=== PATIENT | male | born 1990 | race Caucasian/White ===

== ENCOUNTER → 2020-04-15 | Outpatient (CLI) | payer OTHER ==
--- NOTE | 2020-04-15 08:33 | PFTRPT ---
Site: [facility], [address] [place] [address], [id number] ID: [id number] Name: ANGEL MIRELES Visit Date: 04/15/2020 Second ID: [id number] Referring Doctor: SEAN Petersen Marcus, M Reviewing Doctor: Farshad Torres MD Assistant Professor Sculpture: Johann KOVACS RRT Age: 29 : 1990 Sex: Male Race: Height: 62.50 Inches Weight: 209.00 Lbs BSA: 1.96 Order IDs: [id number] Requested Test(s): <RESP-PFT.PFT B/A> Diagnosis: R06.00 test meet the ATS standards for acceptability and repeatability. Pt was given four puffs of albuterol for post bronchodilator. Review Status: Not Reviewed Pre-Bronch Post-Bronch Pred Actual %Pred Actual %Chng SPIROMETRY FVC (L) 4.30 3.29 76 3.22 -2 FEV1 (L) 3.59 2.78 77 2.81 1 FEV1/FVC (%) 82 84 102 87 3 FEF 25% (L/sec) 8.14 7.06 86 7.35 4 FEF 50% (L/sec) 6.28 3.50 55 3.94 12 FEF 75% (L/sec) 2.13 1.26 59 1.32 4 FEF 25-75% (L/sec) 3.88 3.05 78 3.22 5 FEF Max (L/sec) 8.64 7.52 87 7.37 -2 FIVC (L) 3.27 3.27 FIF 50% (L/sec) 5.54 7.49 135 7.17 -4 FIF Max (L/sec) 7.66 7.53 -1 MVV (L/min) 155 121 78 Expiratory Time (sec) 7.09 6.32 -10 Back Extrap Vol (L) 0.14 0.13 -7 Time To FEFmax (sec) 0.101 0.102 LUNG VOLUMES SVC (L) 4.20 3.34 79 IC (L) 2.92 3.18 108 ERV (L) 1.28 0.17 12 TGV (L) 2.46 2.12 86 RV (Pleth) (L) 1.18 1.95 165 TLC (Pleth) (L) 5.38 5.29 98 RV/TLC (Pleth) (%) 23 37 160 DIFFUSION DLCOunc (ml/min/mmHg) 32.51 16.92 52 DLCOcor (ml/min/mmHg) 32.51 17.01 52 DL/VA (ml/min/mmHg/L) 6.04 4.22 69 VA (L) 5.38 4.03 74 BHT (sec) 10.11 IVC (L) 2.97 TLC (SB) (L) 4.18 AIRWAYS RESISTANCE Raw (cmH2O/L/s) 1.45 1.00 69 Gaw (L/s/cmH2O) 1.03 1.00 97 sRaw (cmH2O*s) 4.76 2.17 45 sGaw (1/cmH2O*s) 0.20 0.47 233 BLOOD GASES Hgb (gm/dL) 14.4
== END ==
LOC: M CARPUL 07:57
PROVIDERS: ATTEND Physician Assistant
DX: R06.00 Dyspnea, unspecified (principal)

== ENCOUNTER → 2020-05-13 | Outpatient (CLI) | payer OTHER ==
[~2020-05-13] MED LIST: METHACHOLINE KIT (J7674) INH ONE
--- NOTE | 2020-06-04 15:39 | METHCHAL ---
ORDERED BY: Galo Petersen M.D. QUALITY: Study of excellent technical quality. PROCEDURE: Under protocol, methacholine was administered. A dose of 0.25 mg or 1.375 CDUs, a 30% decline of the FEV1 was noted. PC of 0.11 is significant. Flow rates did return to baseline post-bronchodilator administration. IMPRESSION: Positive methacholine challenge study MTDD
--- NOTE | 2020-06-07 07:25 | PFTRPT ---
Visit Date: 05/13/2020 Second ID: [id number] Referring Doctor: SEAN Petersen Marcus, M Height: 62.50 Inches Weight: 209.00 Lbs BSA: 1.96 Diagnosis: R06.00 QUALITY: Study of excellent technical quality. PROCEDURE: Under protocol, methacholine was administered. At a dose of 0.25 mg, or 1.375 CDUs, a 30% decline in the FEV1 was noted. PC of 0.11 is significant. Flow rates did return to baseline post-bronchodilator administration. IMPRESSION: Positive methacholine challenge study. MTDD
== END ==
LOC: M CARPUL 10:17
PROVIDERS: ATTEND Physician Assistant
DX: R06.00 Dyspnea, unspecified (principal)
CPT/HCPCS: 94070; 95070; J7674

== ENCOUNTER → 2021-04-19 | Outpatient (CLI) | payer OTHER ==
--- NOTE | 2021-04-19 16:39 | REP ---
INDICATION: MILD INTERMITTENT ASTHMA WITH (ACUTE) EXACERBATION. COMPARISON: No comparison chest x-ray. TECHNIQUE: Two views.. FINDINGS: The lungs are well inflated and free of infiltrate. The pleural angles are sharp. The heart size is normal. Pulmonary vasculature is not increased. No significant bony abnormality is seen. IMPRESSION: Negative chest x-ray. <Electronically signed by Aleksandar Mohan > 04/19/21 [id number]
== END ==
LOC: M RAD 14:51
PROVIDERS: ATTEND Physician Assistant
DX: J45.21 Mild intermittent asthma with (acute) exacerbation (principal)